=== PATIENT | female | born 1960 | race Caucasian/White ===

== ENCOUNTER → 2017-04-05 | Outpatient (CLI) | payer BC ==
[~2017-04-05] MED LIST: AMBIEN5 MG PO; ANCEF 1GM1 GM/50 M1 IV; CELEBREX 200 M200 M1 PO; COLACE100 MG PO; IBUPROFEN 600600 M1 PO; LASIX 20 MG TAB20 MG PO; LISINOPRIL20 MG PO; NEURONTIN 300300 M1 PO; NORCO 5-325 TA1 EACH PO; PERCOCET 5-3251 EACH PO; PERCOCET PO; POTASSIUM20 PO; ROXICODONE5 MG PO; SENOKOT-S1 TA1 PO; TIZANIDINE HCL4 MG PO; VANCOMYCIN1.25 GM/21 IV; VISTARIL 25 MG25 M1 PO; XARELTO10 MG PO; XARELTO15 MG PO; ZESTRIL40 MG PO
== END ==
LOC: RAD 13:59
DX: Z12.31 Encounter for screening mammogram for malignant neoplasm of breast (principal)

== ENCOUNTER → 2019-05-01 | Outpatient (CLI) | payer OTHER | LOC: RAD 15:19 | DX: Z12.31 Encounter for screening mammogram for malignant neoplasm of breast (principal) ==

== ENCOUNTER → 2019-05-07 | Outpatient (CLI) | payer OTHER | LOC: RAD 08:22 | DX: R92.1 Mammographic calcification found on diagnostic imaging of breast (principal) ==

== ENCOUNTER → 2019-05-12 | Outpatient (CLI) | payer OTHER ==
--- NOTE | 2019-05-15 11:38 | PATH ---
[facility] [address] [place] [address] PATHOLOGY RPT PROCEDURE Name: MAURI NAJERA JAYA Room #: REG [facility]..#: [id number] Admission: 05/12/19 Date of : 62 Discharge: Report #: [id number] Path Case #: [id number] [facility] Accession Number: [id number] . 01 Material submitted: . breast - RIGHT BREAST CALCIFICATIONS. Modifiers: right . 01 Clinical history: . Right breast calcifications . 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 (IUV:pit; 05/14/2019) . QTP 05/14/2019 1338 Local . 02 Comment: Examination shows an intraductal papilloma with several foci of solid architecture as well as cribriform growth pattern. Properly controlled immunohistochemical stains are performed on block A3 and are interpreted as follows: . CK5/6 - Loss of the mosaic pattern within the scattered foci. ER - Marked increase in nuclear reactivity. P63 - Intact myoepithelial cells present. [facility] - Intact myoepithelial cells present. . The findings support an intraductal papilloma with scattered foci of atypical ductal hyperplasia. This area spans 9 mm; however, due to the presence of mosaic pattern amidst the areas of loss with the CK5/6 immunohistochemical stain, it is interpreted as atypical ductal hyperplasia. Findings are worrisome for ductal carcinoma in situ with solid and cribriform architecture. . Dr. Kenyatta Boo has seen this case and concurs with my diagnosis. (IUV:pit; 05/14/2019) . 02 Electronically signed: . Tammy Brown MD, Pathologist NPI- [id number] . 01 Gross description: . The specimen is received in formalin, labeled "right [place]". The specimen is additionally labeled on the requisition as, "right medial". Received are multiple needle cores of fibrofatty tissue measuring 3.[address] [address] PATHOLOGY RPT PROCEDURE Name: MAURI NAJERA Room #: REG [facility] Jaqueline#: [id number] Admission: 05/12/19 Date of : 62 Discharge: Report #: [id number] Path Case #: [id number] 2.8 x 0.5 cm in aggregate dimensions. Also received within the container is a plastic cassette containing needle cores of fibrofatty tissue measuring 3.5 x 2.4 x 0.6 cm in aggregate dimensions. The suspect tissue is transferred to cassettes A1 and A2, and the remainder of the specimen is submitted in cassettes A3 and A4. The cold ischemic time is 6 minutes. The total formalin fixation time is 12 hours and 14 minutes. (CAA; 05/12/2019) QAC/QA 05/12/2019 1438 Local . 02 Pathologist provided ICD-10: D24.1, N60.91 . 02 CPT . 595921, U20113, N47745 Specimen Comment: A courtesy copy of this report has been sent to [phone], [phone] Specimen Comment: [id number] Specimen Comment: Report sent to / POST Specimen Comment: A duplicate report has been generated due to demographic updates. Performed at: [address], [place] [id number] MD Clovis Peres MD Phone: [phone] Performed at: [address] [id number] MD Tammy Brown MD Phone: [phone]
== END | disposition home or self-care (01) ==
LOC: RADSTEREO 03:42
DX: D24.1 Benign neoplasm of right breast (principal); N60.91 Unspecified benign mammary dysplasia of right breast; R92.1 Mammographic calcification found on diagnostic imaging of breast; Z88.8 Allergy status to other drugs, medicaments and biological substances; Z79.899 Other long term (current) drug therapy; Z79.891 Long term (current) use of opiate analgesic; Z98.890 Other specified postprocedural states